=== PATIENT | female | born 1985 | race Asian ===

== ENCOUNTER 2017-02-21 13:49 | Emergency (ER) | payer OTHER ==
[~2017-02-21] VITALS: Ht 172.7 cm; Wt 144.5 kg
[2017-02-21] MEDS ORDERED: IBUPROFEN 200 MG TABLET ONE (14:21)
[2017-02-21] MEDS ORDERED: IBUPROFEN 200 MG TABLET PO ONE (14:30)
[2017-02-21 15:35] VITALS: BP 131/89
== END 2017-02-21 15:58 | disposition home or self-care (01) ==
LOC: ED 15:52
DX: J02.0 Streptococcal pharyngitis (principal)
CPT/HCPCS: 99283